=== PATIENT | male | born 1985 | race Caucasian/White ===

== ENCOUNTER 2019-06-15 13:02 | Emergency (ER) | payer SELFPAY ==
[2019-06-15 14:09] VITALS: BP 123/67
== END 2019-06-15 19:49 | disposition left against medical advice (07) ==
LOC: ED 13:02
DX: M79.18 Myalgia, other site (principal); Z53.21 Procedure and treatment not carried out due to patient leaving prior to being seen by health care provider

== ENCOUNTER 2020-09-11 21:26 | Emergency (ER) | payer OTHER ==
[2020-09-11 21:57] VITALS: BP 149/83
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
--- NOTE | 2020-09-12 12:11 | Electrocardiograph Report ---
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
== END 2020-09-12 00:41 | disposition home or self-care (01) ==
LOC: ED 21:26
DX: F43.0 Acute stress reaction (principal); F41.1 Generalized anxiety disorder
CPT/HCPCS: 93005; 99282

== ENCOUNTER 2021-10-16 23:55 | Emergency (ER) | payer OTHER ==
[2021-10-17 00:51] VITALS: BP 113/59
[2021-10-17] MEDS ORDERED: HYDROcodone/ACETAMINOPHEN 10-325MG TAB PO ONE (08:28)
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
== END 2021-10-17 10:33 | disposition home or self-care (01) ==
LOC: ED 23:55
DX: S00.83XA Contusion of other part of head, initial encounter (principal); Y04.8XXA Assault by other bodily force, initial encounter; Y93.89 Activity, other specified; Y92.89 Other specified places as the place of occurrence of the external cause; Y99.8 Other external cause status
CPT/HCPCS: 70450; 72125; 99283